=== PATIENT | female | born 1950 | race Caucasian/White ===

== ENCOUNTER 2019-12-29 08:03 | Emergency (ER) | payer OTHER, SELFPAY ==
[2019-12-29 08:05] VITALS: BP 239/129; PULSE 87; RESP 17; TEMP 36.1; O2SAT 97; BMI 28.3
[2019-12-29 08:12] VITALS: BP 219/123; PULSE 83; RESP 17; O2SAT 96
--- NOTE | 2019-12-29 08:25 | RAD_ITS ---
STUDY: X-RAY - LEFT FOOT CLINICAL: Female, 69 years old. FALL, SWELLING IN FOOT AND ANKLE TECHNIQUE: 3 view(s) of the foot. COMPARISON: None. FINDINGS: Normal talus, calcaneus, and tarsal bones. Normal visualized subtalar, talonavicular, calcaneocuboid, tarsal and tarsometatarsal articulations. Normal metatarsi. Normal metatarsophalangeal joint of the great toe. Normal tibial and fibular sesamoid bones. Normal interphalangeal joint of the great toe. Normal phalanges of the great toe. Normal second through fifth metatarsophalangeal joints. Normal interphalangeal joints and phalanges of the lesser toes. Significant soft tissue swelling. Generalized osteopenia. RAD/Foot min 3 Views IMPRESSION: Significant soft tissue swelling of the foot. Generalized osteopenia limiting evaluation. Electronically Signed: Bhanu Kat DO at 8:57 EDT Tel [phone], Service support ,
--- NOTE | 2019-12-29 08:25 | RAD_ITS ---
STUDY: X-RAY - LEFT ANKLE REASON FOR EXAM: Female, 69 years old. FALL, SWELLING IN FOOT AND ANKLE TECHNIQUE: 3 view(s) of the ankle. COMPARISON: None. FINDINGS: Normal visualized distal tibia and fibula. Normal medial and lateral malleoli. Normal tibiotalar articulation and ankle mortise. Normal visualized talus and calcaneus. The visualized subtalar, talonavicular, calcaneocuboid and tarsal articulations are normal. Generalized osteopenia. Diffuse soft tissue swelling. RAD/Ankle min 3 Views IMPRESSION: Significant soft tissue swelling of the ankle. Generalized osteopenia limiting evaluation. Electronically Signed: Bhanu Kat DO at 8:53 EDT Tel [phone], Service support ,
--- NOTE | 2019-12-29 08:26 | ED.VISSUMM ---
- ER Visit Summary Date of Service: 12/29/19 Chief Complaint: Fall History of Present Illness: The patient is a 69 F who presents after a fall today. Patient has a history of muscular dystrophy and family was helping lift the patient today when the strap broke. Patient complains of pain in her left foot and ankle area. Patient states the pain is worse with movement. Patient denies any paresthesias or weakness. Patient denies any head injury or loss of consciousness. Patient denies any other injuries. Physical Examination: Vital signs are stable except for an elevated blood pressure of 219/123. Patient is afebrile. Patient is in no acute distress. Musculoskeletal exam reveals tenderness over the left foot and ankle area. There is no ecchymosis. There is moderate edema. There is no deformity noted. Range of motion was limited in all motion secondary to pain. Sensation was intact to light touch in all digits. Capillary refill was less than 2 seconds in all digits. Pedal pulses are equal bilaterally. Test Results: X-rays of the left foot and left ankle were obtained. There is no acute fracture. These were interpreted by the radiologist and myself. Emergency Department Course and Treatment: Patient does not want anything for pain at this time. Patient does not bear any weight on her left foot so she does not need any bracing or postop shoe. Patient was instructed to ice and elevate the left foot and ankle area. Patient was instructed to take Tylenol or ibuprofen as needed for pain. Patient was instructed to follow-up with her primary care physician in 5 to 7 days. Patient and family understood and were agreeable with the plan. All questions were answered. Disposition: Discharge home Impression: 1. Left foot contusion This note was generated with [employer] dictation software. It may contain incorrect words, spelling, and punctuation that were not noted in review of the chart prior to signing ED Disposition - Plan for ED Patient: Disposition: Home or Assisted Living Diagnosis: Contusion of left foot, initial encounter Instructions: ED FOOT CONTUSION Referrals: Care Physician,No Primary [Primary Care Provider] - 5-7 Days
== END 2019-12-29 09:51 | disposition home or self-care (01) ==
PROVIDERS: Emergency Provider Emergency Medicine
DX: S90.32XA Contusion of left foot, initial encounter (principal); W19.XXXA Unspecified fall, initial encounter
CPT/HCPCS: 73610; 73630; 99282

== ENCOUNTER 2021-05-04 13:16 | Emergency (ER) | payer OTHER, SELFPAY ==
[2021-05-04 13:16] VITALS: PULSE 77; RESP 16; TEMP 36.8; O2SAT 94; BMI 35.7
[2021-05-04 13:30] VITALS: BP 225/92; PULSE 79; RESP 30; O2SAT 91
--- NOTE | 2021-05-04 13:47 | EKG12_ITS ---
Test Reason : GEN ILLNESS Blood Pressure : / mmHG Vent. Rate : 069 BPM Atrial Rate : 069 BPM P-R Int : 154 ms QRS Dur : 072 ms QT Int : 442 ms P-R-T Axes : 016 -03 037 degrees QTc Int : 473 ms Normal sinus rhythm with sinus arrhythmia Voltage criteria for left ventricular hypertrophy Abnormal ECG Confirmed by HIPOLITO FOUNTAIN, CK ([id number]), makeup editor KEELY HOLDER ([id number]) on 05/06/2021 8:48:12 AM Referred By: JHONY Confirmed By:CK MCMILLAN MD
--- NOTE | 2021-05-04 13:47 | RAD_ITS ---
STUDY: X-RAY CHEST REASON FOR EXAM: Female, 70 years old. cough TECHNIQUE: AP COMPARISON: None. FINDINGS: EKG leads project over the chest. Elevation of the right hemidiaphragm. Rounded opacity adjacent to the right hilum measures up to 2.6 x 3.8 cm. Mild blunting of the right costophrenic angle. Normal size heart. Normal mediastinum and pricilla. Normal visualized pulmonary arteries. There is atherosclerotic tortuosity of the aortic arch and descending thoracic aorta. There is demineralization of the osseous structures. Normal visualized ribs, clavicles, and shoulders. There is no demonstrated abnormality of the visualized soft tissue structures of the upper abdomen. RAD/Chest 1 View (Portable) IMPRESSION: 1. Right pulmonary volume loss with potential mass or adenopathy of the right hilum. Chest CT recommended. 2. Trace right pleural fluid. Electronically Signed: Boom Sheth MD ([place]) at 15:13 EDT , Service support ,
--- NOTE | 2021-05-04 13:48 | EDS_ITS ---
HPI <Dr. Karissa Garg DO - Last Filed: 05/04/21 15:29> History of Present Illness Chief Complaint: General Illness Detail of Chief Complaint: High blood pressure Informant: patient Narrative Narrative: Patient presents to the emergency department complaint of hypertension that she has been dealing with for years. Patient not currently medicated other than herbal remedies. Patient states that last night she was very restless and could not sleep. Caregiver called EMS to bring her in for evaluation as she is feeling weak. Patient denies headache or chest pain or shortness of breath. Patient denies recent illness although does admit to slight cough. She has not had the Covid vaccine. Patient denies urinary symptoms. Patient has history of muscular dystrophy and has not ambulated in over 20 years. Prior similar symptoms: No PFSH <Dr. Karissa Garg, DO - Last Filed: 05/04/21 15:29> [facility] Medical History (Updated 05/04/21 @ 18:[address] Benny Salinas MD) HTN (hypertension) Muscular dystrophy Home Medications amlodipine 2.5 mg PO DAILY #30 tab 05/04/21 [Rx Last Taken Unknown] Allergy/AdvReac Type Severity Reaction Status Date / Time No Known Allergies Allergy Verified 05/04/21 13:22 Surgical History no surgical history Social History Smoking Status: Never smoker ROS <Dr. Karissa Garg, DO - Last Filed: 05/04/21 15:29> ROS ED ROS Narrative Hypertension and generalized weakness Constitutional Constitutional ED: Reports systems reviewed and no addt'l complaints, except as documented; Denies body ache(s), change in weight or chills Eyes Eyes: Denies acute decrease in peripheral vision, change in vision, double vision or loss of vision ENT ENT ED: Reports none; Denies ear pain, lip swelling, loss taste/smell, neck pain, otalgia or sore throat Cardiovascular Cardiovascular: Reports none; Denies abdominal pain, chest pain with activity, leg edema, lightheadedness, palpitations, rapid heart rate or syncope Respiratory/Chest Respiratory/Chest: Reports none; Denies change in mental status, dry cough, dyspnea, hemoptysis, shortness of breath at rest or shortness of breath with exertion Gastrointestinal Gastrointestinal: Reports none; Denies abdominal pain, change in stool character, diarrhea, hematemesis, hematochezia, melena, rectal bleeding or vomiting Genitourinary Genitourinary ED: Reports none; Denies abdominal discomfort, anuria, dysuria, genital pain or polyuria Musculoskeletal Musculoskeletal: Reports none; Denies arthralgias, back pain, difficulty walking, extremity pain, muscle weakness or myalgias Integumentary Reports none; Denies abscess or rash Neurologic Neurologic: Reports none and weakness; Denies abnormal gait, confusion, focal weakness, frequent falls, headache(s), loss of vision, numbness, paresthesias, radicular pain or vertigo Psychiatric Psychiatric: Reports systems reviewed and no addt'l complaints, except as docum ented, none and other Details: Restless ; Denies behavioral changes, confusion, difficulty concentrating, hallucinations, suicidal ideation, tactile vashti lucinations or visual hallucinations Endocrine Endocrinology: Denies none, cold intolerance, excessive sweating, fatigue or hea t intolerance Hematologic/Lymphatic Hematologic/Lymphatic: Reports none; Denies anemia, easy bleeding or easy bruising Allergic/Immunologic Allergic/Immunologic ED: Denies as per HPI, none, lip swelling, mouth swelling, throat swelling, tongue swelling or hives EXAM <Dr. Karissa Garg, DO - Last Filed: 05/04/21 15:29> Physical Exam Const Vital Signs: 05/04/21 13:16 05/04/21 13:30 05/04/21 13:33 Temperature 98.2 F Temperature Source Oral Pulse Rate 77 79 Respiratory Rate 16 30 H Respiratory Effort Normal Non-Labored Blood Pressure 225/92 H Blood Pressure Mean 136 Pulse Ox 94 91 Oxygen Delivery Method Room Air Room Air Oxygen Flow Rate (L/min) 05/04/21 15:12 05/04/21 17:09 Temperature Temperature Source Pulse Rate 72 74 Respiratory Rate 25 H 22 H Respiratory Effort Blood Pressure 231/95 H 175/75 H Blood Pressure Mean 140 108 Pulse Ox 95 96 Oxygen Delivery Method Room Air Nasal Cannula Oxygen Flow Rate (L/min) 2 Positive well nourished and well developed General Appearance ED: well developed and NAD HEENT Reports TM's clear and moist mucous membranes normocephalic and atraumatic; Negative for trauma or tenderness Tympanic Membrane ED: Yes TM's clear Eyes PERRL and EOMs intact bilaterally General Eye ED: Negative for pale conjunctiva or scleral icterus Neck no lymphadenopathy, supple and no JVD General: Negative for tenderness Chest Wall inspection of chest normal and palpation of chest normal Chest: Negative for tenderness Resp normal respiratory effort and clear to auscultation bilaterally Effort and Inspection: Negative for respiratory distress or pain with movement Auscultation: Negative for rhonchi, wheezes or diminished lung sounds Cardio regular rate, regular rhythm, S1 normal heart sound, S2 normal heart sound and no murmurs Peripheral Pulses: pulses 2+ throughout GI normal to inspection, nondistended, normoactive bowel sounds, soft to palpation, non-tender, non-distended and no masses Back/Spine no CVA tenderness and no thoracic nor lumbar tenderness Extremity Extremity Narrative: Lower extremities are flaccid and she has +1 edema both lower extremities. General Extremety ED: Negative for edema General Extremity: Negative for edema Neuro oriented x3, CN's II-XII intact bilaterally, no sensory deficits noted and gait normal Sensorium / Orientation: awake, alert, oriented to person, oriented to place and oriented to time Motor Exam: strength 5/5 throughout and strength abnormal Psych mental status grossly normal Skin no rashes or lesions noted and no wounds <Dr. Benny Salinas MD - Last Filed: 05/04/21 18:31> Physical Exam Const Vital Signs: 05/04/21 13:16 05/04/21 13:30 05/04/21 13:33 Temperature 98.2 F Temperature Source Oral Pulse Rate 77 79 Respiratory Rate 16 30 H Respiratory Effort Normal Non-Labored Blood Pressure 225/92 H Blood Pressure Mean 136 Pulse Ox 94 91 Oxygen Delivery Method Room Air Room Air Oxygen Flow Rate (L/min) 05/04/21 15:12 05/04/21 17:09 Temperature Temperature Source Pulse Rate 72 74 Respiratory Rate 25 H 22 H Respiratory Effort Blood Pressure 231/95 H 175/75 H Blood Pressure Mean 140 108 Pulse Ox 95 96 Oxygen Delivery Method Room Air Nasal Cannula Oxygen Flow Rate (L/min) 2 MDM <Dr. Karissa Garg DO - Last Filed: 05/04/21 15:29> [facility] Narrative Medical decision making narrative: IV line established on arrival. Patient was given labetalol 20 mg IV. Her blood pressure did not respond and given hydralazine [address] scan of the chest was ordered after x-ray showed questionable right hilar mass. Patient initially was felt to have a pneumonia on my interpretation of the chest x-ray and was started on Rocephin and Zithromax. Still pending is Covid test as well as urinalysis. CTA of chest results pending. Patient will require admission for hypertensive urgency. Care of patient turned over to afternoon physician awaiting results and final disposition. Lab Data Attestation: I reviewed the patient's lab results. Labs: Laboratory Results - last 24 hr 05/04/21 05/04/21 05/04/21 14:04 14:04 15:00 WBC 11.7 H RBC 5.17 Hgb 15.8 H Hct 49.2 H MCV 95.2 MCH 30.6 MCHC 32.1 RDW Std Deviation 44.9 H RDW Coeff of [place] 12.7 Plt Count 339 MPV 9.5 Immature Gran % (Auto) 0.300 Neut % (Auto) 79.8 H Lymph % (Auto) 13.4 L [place] % (Auto) 5.3 Eos % (Auto) 1.0 Baso % (Auto) 0.2 Absolute Neuts (auto) 9.3 H Absolute Lymphs (auto) 1.57 Nucleated RBC % 0 Sodium 135 L Potassium 3.8 Chloride 99 Carbon Dioxide 32.0 Anion Gap 4 L BUN 10 Creatinine 0.16 L Estim Creat Clear Calc 38.94 Est GFR (MDRD) Af Amer 590 Est GFR (MDRD) Non-Af 487 BUN/Creatinine Ratio 63.3 H Glucose 116 H Calcium 9.4 Total Bilirubin 0.80 AST 17 ALT 34 Alkaline Phosphatase 75 Troponin I High Sens 8 Total Protein 7.7 Albumin 3.4 Globulin 4.3 H Albumin/Globulin Ratio 0.8 L Urine Color Straw Urine Clarity Clear Urine pH 8.0 Ur Specific Dearing 1.015 Urine Protein 15 H Urine Glucose (UA) Normal Urine Ketones 15 H Urine Occult Blood 150 H Urine Nitrite Negative Urine Bilirubin Negative Urine Urobilinogen Normal Ur Leukocyte Esterase Negative Urine RBC 0-5 SEEN Urine WBC 0 SEEN Ur Squamous Epith Cells 0 SEEN Urine Bacteria 0 SEEN Urine Mucus 0 SEEN Radiography Chest X-Ray - ED: 1 View Diagnostic Testing: Clinical Impression(s) from Imaging Studies Chest X-Ray 05/04/21 13:47 IMPRESSION: 1. Right pulmonary volume loss with potential mass or adenopathy of the right hilum. Chest CT recommended. 2. Trace right pleural fluid. Electronically Signed: Boom Sheth MD ([place]) at 15:13 EDT , Service support , Chest CTA 05/04/21 15:55 IMPRESSION: 1. No central or segmental pulmonary embolism. 2. Right middle and lower lobe localized atelectasis/volume loss, accounting for abnormality on x-ray. No discrete mass or adenopathy. Electronically Signed: Boom Sheth MD ([place]) at 16:24 EDT , Service support , 1 view x-ray obtained interpreted by myself as right-sided infiltrates. Radiology felt that patient had right pulmonary volume loss with potential mass or adenopathy of the right hilum. EKG Initial EKG: Attestation: I personally reviewed and interpreted this EKG as follows: Comments: Sinus rhythm with a ventricular rate of 69 bpm with occasional PACs and LVH noted. <Dr. Benny Salinas MD - Last Filed: 05/04/21 18:31> [facility] MDM Narrative Medical decision making narrative: Patient was turned over to me pending results of her CT. I reviewed her history. I went and talked to the patient and her care provider and friend. Patient took her blood pressure and it was high. She has fought this for a long time. She had a somewhat restless night but no other specific symptoms. She states she coughs a little bit but that is changed over the past year and nothing acute. No sputum production. No fevers chills or chest pain. Her labs show minimal elevation white count. Electrolytes are overall unremarkable. Urine is clean. Chest x-ray was abnormal. However, the CT does not show pulmonary embolus or infiltrate. It shows some atelectasis and may be chronic bronchiectasis. I talked with the patient about this. She spends almost all her time laying on her right side. She has been been bedbound for decades. We discussed trying to switch sides as that may help. I will get her on a low-dose of antihypertensive which she did agree to at this time. They will follow up with their primary physician. They would really prefer to go home and she feels at her baseline. Lab Data Labs: Laboratory Results - last 24 hr 05/04/21 05/04/21 05/04/21 14:04 14:04 15:00 WBC 11.7 H RBC 5.17 Hgb 15.8 H Hct 49.2 H MCV 95.2 MCH 30.6 MCHC 32.1 RDW Std Deviation 44.9 H RDW Coeff of [place] 12.7 Plt Count 339 MPV 9.5 Immature Gran % (Auto) 0.300 Neut % (Auto) 79.8 H Lymph % (Auto) 13.4 L [place] % (Auto) 5.3 Eos % (Auto) 1.0 Baso % (Auto) 0.2 Absolute Neuts (auto) 9.3 H Absolute Lymphs (auto) 1.57 Nucleated RBC % 0 Sodium 135 L Potassium 3.8 Chloride 99 Carbon Dioxide 32.0 Anion Gap 4 L BUN 10 Creatinine 0.16 L Estim Creat Clear Calc 38.94 Est GFR (MDRD) Af Amer 590 Est GFR (MDRD) Non-Af 487 BUN/Creatinine Ratio 63.3 H Glucose 116 H Calcium 9.4 Total Bilirubin 0.80 AST 17 ALT 34 Alkaline Phosphatase 75 Troponin I High Sens 8 Total Protein 7.7 Albumin 3.4 Globulin 4.3 H Albumin/Globulin Ratio 0.8 L Urine Color Straw Urine Clarity Clear Urine pH 8.0 Ur Specific [place] 1.015 Urine Protein 15 H Urine Glucose (UA) Normal Urine Ketones 15 H Urine Occult Blood 150 H Urine Nitrite Negative Urine Bilirubin Negative Urine Urobilinogen Normal Ur Leukocyte Esterase Negative Urine RBC 0-5 SEEN Urine WBC 0 SEEN Ur Squamous Epith Cells 0 SEEN Urine Bacteria 0 SEEN Urine Mucus 0 SEEN Radiography Diagnostic Testing: Clinical Impression(s) from Imaging Studies Chest X-Ray 05/04/21 13:47 IMPRESSION: 1. Right pulmonary volume loss with potential mass or adenopathy of the right hilum. Chest CT recommended. 2. Trace right pleural fluid. Electronically Signed: Boom Sheth MD ([place]) at 15:13 EDT , Service support , Chest CTA 05/04/21 15:55 IMPRESSION: 1. No central or segmental pulmonary embolism. 2. Right middle and lower lobe localized atelectasis/volume loss, accounting for abnormality on x-ray. No discrete mass or adenopathy. Electronically Signed: Boom Sheth MD ([place]) at 16:24 EDT , Service support , Discharge Plan Triage Chief Complaint: General Illness ED Provider: Karissa Garg Dx/Rx/DC Orders Clinical Impression: Hypertensive urgency, Atelectasis Instructions: ED High Blood Pressure Hypertension Prescriptions: New amlodipine 2.5 mg tablet 2.5 mg PO DAILY Qty: 30 RF: 0 Primary Care Provider: Care Physician,No Primary Referrals: Jax Jewell MD [STAFF PHYSICIAN] - 3-5 Days Care Physician,No Primary [Primary Care Provider] - Disposition Disposition: Home, Self Care
[2021-05-04 14:19] LABS: Absolute Lymphocyte Count 1.57 X10^3/uL (0.83-4.51); Absolute Neutrophil Count 9.3 X10^3/uL (2.0-7.7); Basophil# 0.02 X10^3/uL; Basophil% 0.2 % (0-1); Eosinophil# 0.12 X10^3/uL; Hematocrit 49.2 % (37-47); Hemoglobin 15.8 g/dL (12.0-15.0); Lymphocyte # 1.57 X10^3/ul (0.83-4.51); Lymphocyte % 13.4 % (19-41); Mean Corp Hgb Conc 32.1 g/dL (32-36); Mean Corpuscular Hgb 30.6 pg (27.0-32.0); Mean Corpuscular Volume 95.2 fL (81-99); Mean Platelet Vol. 9.5 fl (6.2-12.0); Monocyte# 0.62 X10^3/uL; Monocyte% 5.3 % (0-10); NRBC Flagged by Analyzer 0 % (0-5); Neutrophil # 9.32 X10^3/uL (2.7-7.7); Neutrophil % 79.8 % (47-70); Platelet Count 339 K/mm3 (150-450); RBC Distribution Width CV 12.7 % (11.6-14.6); RBC Distribution Width SD 44.9 fl (35.1-43.9); Red Blood Count 5.17 M/mm3 (4.2-5.4); White Blood Count 11.7 K/mm3 (4.4-11.0)
[2021-05-04 14:40] LABS: ALB/GLOB Ratio 0.8 RATIO (0.9-2.4); AST(SGOT) 17 U/L (15-37); Alanine Aminotransfer ALT/SGPT 34 U/L (13-56); Albumin, Serum 3.4 g/dL (3.2-5.0); Alkaline Phosphatase 75 U/L (45-117); Anion Gap 4 (5-15); BUN 10 mg/dL (7-18); BUN/Creat Ratio 63.3 RATIO (10-20); Calcium,Total 9.4 mg/dL (8.5-10.1); Chloride 99 mmol/L (98-107); Creatinine, Serum 0.16 mg/dL (0.55-1.02); EST Glomerular Filtration Rate 487 mL/min (>60); Est Glom Filt Rate - Afr Amer 590 mL/min (>60); Estimated Creatinine Clearance 38.94 ml/min; Globulin 4.3 g/dL (2.2-4.2); Glucose 116 mg/dL (74-106); Potassium 3.8 mmol/L (3.5-5.1); Protein, Total 7.7 g/dL (6.4-8.2); Sodium Level 135 mmol/L (136-145); Troponin-I HS 8 pg/mL (3.0-54.0)
[2021-05-04 15:12] VITALS: BP 231/95; PULSE 72; RESP 25; O2SAT 95
[2021-05-04] MEDS: Labetalol (Prefilled) 20 MG/4 ML IV (15:14)
[2021-05-04] MEDS: 0.9% Normal Saline 1,000 ML 150 ML IV (15:14)
[2021-05-04 15:26] LABS: Bacteria 0 SEEN /hpf (None Seen); Mucous, Urine 0 SEEN /hpf (<or=2+); Squamous Epithelial Cells - UA 0 SEEN /hpf (5-10); White Blood Cells 0 SEEN /hpf (0-5)
[2021-05-04 15:30] LABS: Color, Urine Straw (Yellow); Glucose, Dipstick Normal (Normal); Ketone-Dipstick 15 mg/dl (Negative); Leukocyte Esterase-Dipstick Negative /ul (Negative); Nitrite-Dipstick Negative (Negative); Occult Blood-Urine 150 /ul (Negative); Protein-Dipstick 15 mg/dl (Negative); Specific Gravity, Urine 1.015 (1.002-1.030); Urine Bilirubin Dipstick Negative (Negative); Urine Clarity Clear (Clear); Urine Urobilinogen Normal (Normal)
[2021-05-04] MEDS: hydrALAZINE 20 MG/ML Vial 10 MG IV (15:44)
[2021-05-04] MEDS: Ceftriaxone 1 GM/50 ML BAG IV (15:46)
[2021-05-04 15:51] LABS: Red Blood Cells-Urine 0-5 SEEN /hpf (0-5)
--- NOTE | 2021-05-04 15:55 | CT_ITS ---
STUDY: CTA CHEST REASON FOR EXAM: Female, 70 years old. Copy RADIATION DOSAGE (If Supplied By Facility): CTDIvol = ( 13.46 ) mGy, DLP = ( 427.40 ) mGycm TECHNIQUE: The examination was performed with the intravenous administration of IV 100mL Isovue-370. Post-processing of the angiographic images was performed, with multiplanar reformation and 3D reconstruction. Individualized dose optimization techniques were used for this CT. COMPARISON: None. FINDINGS: Normal enhancement of the main pulmonary artery and right and left pulmonary arteries. Normal enhancement of the bilateral peripheral pulmonary arteries. There is no demonstrated pulmonary embolism. Atherosclerosis of the thoracic aorta. There is no demonstrated aortic dissection. Mild cardiomegaly. Normal mediastinum. Normal hilar regions. Elevation the right hemidiaphragm with compressive atelectasis involving the lateral segment right middle lobe and anterior right lower lobe. Mild degree of bronchiectasis. No discrete focal mass is seen. Normal pleura. Normal chest wall structures. There are degenerative changes of thoracic spine. Normal visualized upper abdomen. CT/CTA Chest W/WO Contrast IMPRESSION: 1. No central or segmental pulmonary embolism. 2. Right middle and lower lobe localized atelectasis/volume loss, accounting for abnormality on x-ray. No discrete mass or adenopathy. Electronically Signed: Boom Sheth MD ([place]) at 16:24 EDT , Service support ,
[2021-05-04] MEDS: Ondansetron 4 MG/2 ML Vial IV (16:24)
[2021-05-04 17:09] VITALS: BP 175/75; PULSE 74; RESP 22; O2SAT 96
[2021-05-04 19:56] VITALS: BP 159/81; PULSE 78; RESP 16; O2SAT 95
== END 2021-05-04 20:27 | disposition home or self-care (01) ==
PROVIDERS: Emergency Provider Emergency Medicine
DX: I16.0 Hypertensive urgency (principal); J98.11 Atelectasis
CPT/HCPCS: 71045; 71275; 80053; 81001; 84484; 85025; 87040; 87426; 93005; 96365; 96366; 96367; 96375; 99285; J7030; Q9967; A4216; J2405